=== PATIENT | male | born 1950 | race Caucasian/White ===

== ENCOUNTER 2019-09-05 09:25 | Emergency (ER) | payer OTHER ==
--- NOTE | 2019-09-05 11:04 | RAD REPORT ---
EXAM DESCRIPTION: CT - Head C Spine Mpr Wo Con - 09/05/2019 10:21 am CLINICAL HISTORY: Head and neck injury status post fall. Head and neck pain COMPARISON: 2016 TECHNIQUE: Computed axial tomography of the head and cervical spine was obtained. Sagittal and coronal reconstruction was performed. All CT scans are performed using dose optimization technique as appropriate and may include automated exposure control or mA/KV adjustment according to patient size. FINDINGS: An intracranial bleed is not seen. The ventricles are normal in caliber. An extra-axial fl uid collection is not noted.Fluid within the visualized sinuses and mastoids is not seen A cervical fracture is not visualized. No dislocation is noted. Spondylosis involves the cervical spi ne. Minimal anterior subluxation C3 on C4 and C4 on C5 without significant change IMPRESSION: No acute intracranial abnormality is seen. A cervical fracture is not visualized. If the patient continues to have symptoms to suggest intracra nial /spinal cord pathology then MRI would be recommended
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
[2019-09-05 11:38] VITALS: TEMP 98.8
[2019-09-05 11:40] VITALS: BP 126/76; O2SAT 98
--- NOTE | 2019-09-05 20:12 | EKG ---
Test Date: 2019-09-05 Test Time: 10:31:44 Clearing Inspector: EARL MEASUREMENT RESULTS: Intervals: Rate: 63 MO: 162 QRSD: 116 QT: 414 QTc: 423 [place]: P: 75 MO: 162 QRS: 131 T: 37 INTERPRETIVE STATEMENTS: Normal sinus rhythm Right bundle branch block Abnormal ECG Compared to ECG 03/30/2017 05:51:17 No significant changes Electronically Signed On 09-05-19 20:10:58 CDT by Rodrigue Westfall
== END 2019-09-05 11:32 | disposition home or self-care (01) ==
LOC: ER 09:25
DX: S06.0X9A Concussion with loss of consciousness of unspecified duration, initial encounter (principal); W01.198A Fall on same level from slipping, tripping and stumbling with subsequent striking against other object, initial encounter; Y93.89 Activity, other specified; Y92.89 Other specified places as the place of occurrence of the external cause; I10 Essential (primary) hypertension; J45.909 Unspecified asthma, uncomplicated
CPT/HCPCS: 70450; 72125; 93005; 99283